=== PATIENT | male | born 1955 | race Caucasian/White ===

== ENCOUNTER 2020-01-02 00:16 | Outpatient (CLI) | payer BC, SELFPAY ==
[2020-01-02 17:43] LABS: SARS-CoV-2 RNA PCR Negative
== END 2020-01-02 00:17 | disposition home or self-care (01) ==
LOC: ANHCOVIDDT 00:17
PROVIDERS: PCP Internal Medicine; Visit Provider Internal Medicine Gastroenterology
DX: Z01.818 Encounter for other preprocedural examination (principal); Z11.59 Encounter for screening for other viral diseases
CPT/HCPCS: 87635; C9803; U0003

== ENCOUNTER 2020-01-04 00:54 | Day surgery (SDC) | payer BC, SELFPAY ==
[2019-12-28 13:02] VITALS: BMI 30.3
[2020-01-04 07:06] VITALS: BP 180/94; PULSE 64; RESP 20; TEMP 36.9; O2SAT 98; BMI 30.2
--- NOTE | 2020-01-04 07:06 | P.HP_ITS ---
History of Present Illness History of Present Illness Consent: Risks, benefits, and alternatives have been discussed and questions answered. Patient agrees to proceed with procedure. Chief complaint: screening, hx of polyps Narrative: Wesley Ortiz is a 64 year old male referred for screening colonoscopy. He has had polyps removed in the past [facility] Family History Family History Grandparent Family history of malignant neoplasm Other Cerebrovascular accident Family history of lymphoma Family history of malignant neoplasm of breast in first degree relative Social History Social History Smoking status: Never smoker Alcohol intake: never Meds Home Medications and Allergies Home Medications Medication Instructions Recorded Confirmed Type aspirin 81 mg tablet,delayed 81 mg PO EVERY OTHER DAY 06/19/19 12/28/19 History release rosuvastatin 10 mg tablet 10 mg PO EVERY OTHER DAY 06/19/19 12/28/19 History sitagliptin 100 mg-metformin ER 1 tablet PO DAILY #90 tablet 12/11/19 12/28/19 Rx 1,000 mg tablet,extended [id number] mp Allergies Allergy/AdvReac Type Severity Reaction Status Date / Time No Known Allergies Allergy Verified 01/04/20 07:06 Exam Resp: Auscultation: clear to auscultation bilaterally Cardio: Rate: regular rate Rhythm: regular rhythm GI: GI Palp: Yes Soft to palpation and No Tenderness to palpation present (GI) Assessment and Plan Assessment and plan (1) Colon cancer screening: Code(s): Z12.11 - Encounter for screening for malignant neoplasm of colon Status: Acute Assessment and Plan: Colonoscopy with possible biopsy or polypectomy or cautery or injection of substances.
--- NOTE | 2020-01-04 07:16 | WPDANESEPPF ---
Anes - Initial Pre Proc Eval Procedure: Operation Date: 01/04/20 08:00 Proposed Procedures p Screening Colonoscopy - Andrea Dallas MD Date/Time: 01/04/20 07:16 Surgeon: Andrea Dallas MD Pre Op Diagnosis: screening, hx of polyps Patient Data Age: 64 Gender: M Height: 1.91 m Weight: 109.8 kg Last Vital Signs Temp 36.9 C 01/04/20 07:06 Pulse 64 01/04/20 07:06 Resp 20 01/04/20 07:06 BP 180/94 H 01/04/20 07:06 Pulse Ox 98 01/04/20 07:06 Allergies Allergy/AdvReac Type Severity Reaction Status Date / Time No Known Allergies Allergy Verified 01/04/20 07:06 Home Medications Medication Instructions Recorded Confirmed Type aspirin 81 mg tablet,delayed 81 mg PO EVERY OTHER DAY 06/19/19 01/04/20 History release rosuvastatin 10 mg tablet 10 mg PO EVERY OTHER DAY 06/19/19 01/04/20 History sitagliptin 100 mg-metformin ER 1 tablet PO DAILY #90 tablet 12/11/19 01/04/20 Rx 1,000 mg tablet,extended [id number] Patient hx anesthesia problems: none Family hx anesthesia problems: none PMFSH Past Medical History Medical History (Updated 01/04/20 @ 07:24 by Mehdi Dunlap MD) Elevated LFTs Hyperlipidemia, unspecified Kidney stones Obesity KRISTINE on CPAP Parathyroid adenoma Primary hyperparathyroidism Prostate cancer Type 2 diabetes mellitus with complication, without long-term current use of insulin Family History Family History Grandparent Family history of malignant neoplasm Other Cerebrovascular accident Family history of lymphoma Family history of malignant neoplasm of breast in first degree relative Social History Social History Smoking status: Never smoker Alcohol intake: never Anes - Eval Final PreProcedure Day of Procedure 01/04/20 07:16 Patient weight: obese Heart: regular rate and rhythm Lungs: clear to auscultation and normal air movement Airway: Mallampati scale class II Neurological: alert and oriented Last oral intake: >/= 8 hours ASA classification: III Emergent: no Anesthetic plan: proceed Anesthesia type and monitoring: general GIVS Informed Consent: The patient's anesthetic plan and its attendant risks and benefits were discussed with the patient/family/POA. Questions were solicited and answers provided to the satisfaction of the patient/family/POA.
[2020-01-04] MEDS: LACTATED RINGERS 1,000 ML 150 ML IV CONT (07:18)
[2020-01-04 07:23] LABS: Glucose Point of Care 107 (65-105)
[2020-01-04 08:21] VITALS: BP 158/101; PULSE 63; RESP 27; O2SAT 93
[2020-01-04 08:31] VITALS: BP 160/106; PULSE 60; RESP 17; O2SAT 95
[2020-01-04 08:41] VITALS: BP 165/104; PULSE 60; RESP 23; O2SAT 99
== END 2020-01-04 08:51 | disposition home or self-care (01) ==
PROVIDERS: PCP Internal Medicine; Visit Provider Internal Medicine Gastroenterology
PROC: 0DJD8ZZ Inspection of Lower Intestinal Tract, Via Natural or Artificial Opening Endoscopic (ICD-10-PCS; CPT 45378; principal; 2020-01-04 08:00)
DX: Z12.11 Encounter for screening for malignant neoplasm of colon (principal); D12.3 Benign neoplasm of transverse colon; K63.5 Polyp of colon; K57.30 Diverticulosis of large intestine without perforation or abscess without bleeding; E11.9 Type 2 diabetes mellitus without complications; E78.5 Hyperlipidemia, unspecified; G47.33 Obstructive sleep apnea (adult) (pediatric); E21.0 Primary hyperparathyroidism; Z85.46 Personal history of malignant neoplasm of prostate; Z79.84 Long term (current) use of oral hypoglycemic drugs; Z79.82 Long term (current) use of aspirin; E66.9 Obesity, unspecified; Z68.30 Body mass index [BMI] 30.0-30.9, adult
CPT/HCPCS: 45385; 45380; 88305; J2001; J2704; J7120

== ENCOUNTER 2021-09-17 15:00 | Outpatient (RCR) | payer OTHER, SELFPAY ==
[2021-09-17 15:03] VITALS: BMI 30.5
[2021-09-17 15:07] VITALS: BMI 30.5
== END 2021-10-09 15:04 | disposition home or self-care (01) ==
LOC: ANHDMC 15:00
PROVIDERS: PCP Internal Medicine; Visit Provider Internal Medicine
DX: E11.65 Type 2 diabetes mellitus with hyperglycemia (principal); Z71.3 Dietary counseling and surveillance; Z71.89 Other specified counseling
CPT/HCPCS: 97802; G0108

== ENCOUNTER 2022-01-14 16:57 | Outpatient (CLI) | payer OTHER, SELFPAY ==
--- NOTE | ~2022-01-14 | US_ITS ---
EXAMINATION: US thyroid DATE: 01/14/2022 17:32 INDICATION: Nontoxic single thyroid nodule. TECHNIQUE: Multiple ultrasound images of the thyroid were obtained. COMPARISON: Ultrasound 01/25/2018, chest CT 01/21/09 FINDINGS: The right thyroid lobe measures 5.1 x 1.9 x 1.6 cm. The left thyroid lobe measures 5.2 x 1.9 x 1.6 c m. In the right thyroid lobe, there is a 10 mm mixed cystic and solid, hypoechoic, wider than tall n odule with smooth margin without echogenic foci (TIRADS TR3), stable from 01/25/18. In the right thyro id lobe, there is a 6 mm solid, hypoechoic, wider than tall nodule with smooth margin without echogen ic foci (TR4). In the left thyroid lobe, there is a 9 mm solid, hypoechoic, wider than tall nodule wi th ill-defined margin without echogenic foci (TR4). In the left thyroid lobe, there is a 6 mm predomi nantly solid, hypoechoic, wider than tall nodule with smooth margin without echogenic foci (TR4). IMPRESSION: 1. Small thyroid nodules, likely not clinically significant. No follow-up is needed. Reviewed, dictated and finalized at location B. IMPRESSION: 1. Small thyroid nodules, likely not clinically significant. No follow-up is ne eded.
== END 2022-01-14 16:58 | disposition home or self-care (01) ==
PROVIDERS: PCP Internal Medicine; Visit Provider Nurse Practitioner
DX: E04.2 Nontoxic multinodular goiter (principal)
CPT/HCPCS: 76536